=== PATIENT | female | born 1980 | race African-American/Black ===

== ENCOUNTER → 2016-12-16 | Day surgery (SDC) | payer BC ==
[~2016-12-16] MED LIST: BUPIVACAINE/EPINEPHRINE 0.5% PF 30 ML VIAL ONE; DICL75 PO; GLUC1000 PO; KETOROLAC TROMETHAMINE 30 MG/ML (IVP) VIAL IV PUSH ONE; LACTATED RINGER'S 1000 ML INJ 1,000 ML ONE; MIDAZOLAM HCL 2 MG/2 ML VIAL ONE; MORPHINE SULFATE 4 MG/ML INJ ONE; ONDANSETRON HCL 4 MG/2 ML VIAL IV PUSH ONE; PROPOFOL 200 MG/20 ML AMP IV ONE; SODIUM CHLOR 0.9% 250 ML BAG IV ONE; VANCOMYCIN 500 MG VIAL ONE; VANCOMYCIN HCL 1000 MG VIAL ONE; metroNIDAZOLE 500 MG INJ 100 ML IV ONE; oxyCODONE/ACETAMINOPHEN 5 MG/325 MG TAB ONE
--- NOTE | 2016-12-16 13:35 | TN ---
cc: DAVID SRIVASTAVA MD DATE OF SURGERY: 12/16/2016 PREOPERATIVE DIAGNOSIS Symptomatic Cholelithiasis POSTOPERATIVE DIAGNOSIS: Symptomatic cholelithiasis. PROCEDURE Laparoscopic cholecystectomy. SURGEON David Srivastava MD. GI TECHNICIAN: Staff. SPECIMENS: Gallbladder and contents. ESTIMATED BLOOD LOSS 5 cc PROCEDURE IN DETAIL The patient was taken to the operating room and placed in a supine position. General endotracheal anesthesia was induced and a surgical time-out was performed to verify correct patient, procedure and site. The abdomen was prepped and draped in usual sterile fashion. Local anesthetic injected the skin and subcutaneous tissue to the right and superior the umbilicus and a 5 mm incision made. The abdomen was entered using the 5-mm trocar with the laparoscope directly. It was insufflated to 15 mmHg with CO2 gas. After a few minutes the patient did develop bradycardia and therefore desufflation was performed. After the patient had recovered appropriately and after discussion with anesthesia. Her proceeded to re-insufflated the abdomen to 12 mmHg which the patient tolerated well. I placed a 12 mm port the epigastrium and a 5 mm port in the right upper abdomen and the right lateral abdomen. She was placed in reverse Trendelenburg position and turned slightly to the left. Attention was turned to the right upper quadrant and the dome of the gallbladder was grasped and retracted cephalad. The infundibulum was grasped and retracted laterally. Careful blunt and electrocautery dissection was used to delineate the cystic duct and cystic artery to directly entering the gallbladder and two clips were placed proximally on each structure once distally and they were transected. The gallbladder was removed from the liver bed using electrocautery. There was evidence of chronic inflammation and gallstones present. Hemostasis was achieved and the gallbladder was removed from the abdomen using an EndoCatch bag. The clips on the artery and duct were intact with no bleeding or leaks of bile. The trocars were then removed and the abdomen allowed to desufflate. The fascia at the epigastric incision was closed with a single 0 Vicryl suture. Skin closed with subcuticular 4-0 Monocryl and Dermabond. The patient tolerated the procedure well and was extubated and taken to PACU in stable condition. MD ABEL Yeager/ming /11:54 AM /1:20 PM
== END | disposition home or self-care (01) ==
LOC: ESDC 08:54
PROVIDERS: ATTEND Surgery
DX: K80.10 Calculus of gallbladder with chronic cholecystitis without obstruction (principal)
CPT/HCPCS: 00790; 47562; 88304; J1885; J2250; J2270; J2405; J3010; J3370; J7050; J7120